=== PATIENT | female | born 1980 | race Caucasian/White ===

== ENCOUNTER 2024-08-07 07:16 | Emergency (ER) | payer SELFPAY ==
[2024-08-07 07:22] VITALS: BP 94/71; PULSE 112; TEMP 37.1; O2SAT 98; BMI 28.8
--- NOTE | 2024-08-07 07:37 | ED.GENADUL1 ---
HPI HPI - General Adult General Chief complaint: Fever Stated complaint: BLOOD IN URINE, FEVER X'S 3 DAYS Time Seen by Provider: 08/07/24 07:25 Mode of arrival: walk-in Limitations: no limitations History of Present Illness HPI narrative: The patient is a 43-year-old female to come to the ER with 2 main concern and the fact that she found some blood in her urine since yesterday, and she also started having sore throat over the last 24 hours, the patient denies any other complaints she mentioned that the sore throat is mostly to the left side, she does have some sense of chills at home as well No nausea no vomiting she also have some lower back pain on both sides No nausea no vomiting no other concerns Related Data Home Medications ?Medication ?Instructions ?Recorded ?Confirmed bupropion HCl 150 mg 24 hr tablet, 450 mg PO DAILY 08/07/24 08/07/24 extended release semaglutide (weight loss) 2.4 2.4 mg subcut Q7D 08/07/24 08/07/24 mg/0.75 mL subcutaneous pen injector (Wegovy) sertraline 50 mg tablet 50 mg PO Q24H 08/07/24 08/07/24 Previous Rx's ?Medication ?Instructions ?Recorded amoxicillin 875 mg-potassium 1 tab PO BID #28 tabs 08/07/24 clavulanate 125 mg tablet Allergies Allergy/AdvReac Type Severity Reaction Status Date / Time No Known Drug Allergies Allergy Verified 08/07/24 07:27 Review of Systems ROS Status of ROS 10 or more systems reviewed and unremarkable except as noted in history and below PFSH PFSH Social History Little interest or pleasure in doing things: not at all Feeling down, depressed, or hopeless: not at all Exam Narrative Exam Narrative: Nurses notes and vital signs reviewed and patient is not hypoxic. General: Well-appearing and in no apparent distress. Skin: Warm, dry, no pallor noted. No rash. Head: Normocephalic, atraumatic. Neck: Supple, lymphadenopathy in the left submandibular area Eye: Pupils are equal, round and EOMI. No scleral icterus. Ears, Nose, Mouth, and Throat: The patient have obvious tonsillar erythema and enlargement on the left side with white spot of exudate on the left side only and lymphadenopathy in the left side as well Cardiovascular: Regular Rate and Rhythm without murmur, gallop or rub. Respiratory: No accessory muscle use or respiratory distress. Lungs are clear to auscultation, no wheezing, rales or rhonchi Chest Wall: no tenderness Back: Bilateral lower back pain mostly at the paraspinal muscle both side of the upper lumbar level Musculoskeletal: normal ROM, no calf or popliteal tenderness, no lower extremity edema/swelling GI: Abdomen is soft, non-distended. Normal bowel sounds. No masses appreciated. No tenderness to palpation. No rebound, guarding, or rigidity noted. Neurological: A&O x4. No cranial nerve dysfunction observed. No truncal ataxia. Moves all extremities. Sensation intact. Psychiatric: Cooperative and interactive. Normal mood and affect. Constitutional Vital Signs, click to edit/add: Last Vital Signs Temp 98.8 F 08/07/24 07:22 Pulse 112 H 08/07/24 09:17 Resp 20 08/07/24 09:17 BP 103/60 08/07/24 09:17 Pulse Ox 99 08/07/24 09:17 O2 Del Method Room Air 08/07/24 09:17 Course Vital Signs Vital signs: Vital Signs Temperature 98.8 F 08/07/24 07:22 Pulse Rate 112 H 08/07/24 07:22 Respiratory Rate 20 08/07/24 07:22 Blood Pressure 94/71 08/07/24 07:22 Pulse Oximetry 98 08/07/24 07:22 Oxygen Delivery Method Room Air 08/07/24 07:22 Temperature 98.8 F 08/07/24 07:22 Pulse Rate 112 H 08/07/24 09:17 Respiratory Rate 20 08/07/24 09:17 Blood Pressure 103/60 08/07/24 09:17 Pulse Oximetry 99 08/07/24 09:17 Oxygen Delivery Method Room Air 08/07/24 09:17 Medical Decision Making [facility] Narrative Medical decision making narrative: With the patient presentation of sore throat and the fact that there is obvious strep infection the patient strep test was negative but yet to be covered with Augmentin Especially with the white blood cell being elevated and her CBC and the chemistry was within normal there was no acute kidney injury Urine shows some blood as well as ketones and proteinuria There is no sign of urine infection at the moment and the patient presentation is highly likely to be secondary glomerulonephritis streptococcal I did explain to the patient my concern and the fact that she need to follow-up with someone within few days to reevaluate her kidney she is also to come back in case of any worsening of her symptoms including any pain fever chills or any leg edema or swelling The patient is to follow up with primary care physician in next 2-3 days or to return to the emergency department should any of the signs or symptoms worsen or new symptoms develop. The patient agrees with the following Diagnosis and Treatment plan and the patient will be discharged home. Lab Data Labs: Lab Results 08/07/24 08/07/24 08/07/24 Range/Units 07:24 07:28 07:40 WBC 15.7 H (4.0-11.0) 10^3/uL RBC 4.35 (4.20-5.40) 10^6/uL Hgb 13.1 (12.0-16.0) g/dL Hct 38.8 (36.0-48.0) % MCV 89.2 (81.0-99.0) fL MCH 30.1 (26.7-34.0) pg MCHC 33.8 (29.9-35.2) g/dL RDW 12.6 (11.0-15.0) % Plt Count 251 (150-450) 10^3/uL MPV 10.4 (9.5-13.5) fL Neut % (Auto) 86.5 H (43.0-75.0) % Lymph % (Auto) 6.4 L (20.5-60.0) % [place] % (Auto) 6.3 (1.7-12.0) % Eos % (Auto) 0.1 L (0.9-7.0) % Baso % (Auto) 0.2 (0.2-2.0) % Neut # (Auto) 13.6 H (1.4-6.5) 10^3/uL Lymph # (Auto) 1.0 L (1.2-3.8) 10^3/uL [place] # (Auto) 1.0 H (0.3-0.8) 10^3/uL Eos # (Auto) 0.0 (0.0-0.7) 10^3/uL Baso # (Auto) 0.0 (0.0-0.1) 10^3/uL Abs Immat Gran (auto) 0.08 H (0.00-0.03) 10^3/uL Imm/Tot Granulo (auto) 0.5 (0.0-0.5) % Sodium 134 L (136-145) mmol/L Potassium 3.5 (3.5-5.1) mmol/L Chloride 98 (98-107) mmol/L Carbon Dioxide 26.9 (21.0-32.0) mmol/L Anion Gap 12.6 BUN 6.0 L (7.0-18.0) mg/dL Creatinine 0.74 (0.55-1.02) mg/dL Est GFR ( Amer) >60 (>=60 mL/min/1.73m^2) Est GFR (Non-Af Amer) >60 (>=60 mL/min/1.73m^2) BUN/Creatinine Ratio 8.1 Glucose 104 (74-106) mg/dL Lactate 0.8 (0.4-2.0) mmol/L Calcium 8.8 (8.5-10.1) mg/dL Total Bilirubin 0.7 (0.2-1.0) mg/dL AST 14 L (15-37) U/L ALT 17 (14-59) U/L Alkaline Phosphatase 78 (46-116) U/L Total Protein 7.3 (6.4-8.2) g/dL Albumin 3.6 (3.4-5.0) g/dL Globulin 3.7 g/dL Albumin/Globulin Ratio 1.0 Serum HCG, Qual Negative (NEGATIVE) Urine Color Dk yellow (YELLOW) Urine Clarity Clear (CLEAR) Urine pH 6.0 (5.0-9.0) Ur Specific [place] >=1.030 A (1.005-1.025) Urine Protein 100 A (NEG/TRACE) mg/dL Urine Glucose (UA) Negative (NEGATIVE) mg/dL Urine Ketones 40 A (NEGATIVE) mg/dL Urine Occult Blood Large A (NEGATIVE) Urine Nitrite Negative (NEGATIVE) Urine Bilirubin Small A (NEGATIVE) Urine Urobilinogen 4.0 A (0.2-1.0) EU/dL Ur Leukocyte Esterase Trace A (NEGATIVE) Urine RBC 10-20 A (0-2) #/HPF Urine WBC 5-10 A (NONE SEEN) #/HPF Ur Squamous Epith Cells Many A (NONE/RARE) #/LPF Urine Crystals None seen (None Seen) #/HPF Urine Bacteria Small A (NONE SEEN) #/HPF Urine Casts None seen (NONE SEEN) #/LPF Urine Mucus Small A (NONE SEEN) Ur Culture Indicated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
[2024-08-07 07:43] LABS: Bilirubin Urine SMALL (NEGATIVE); Blood Urine LARGE (NEGATIVE); Clarity Urine CLEAR (CLEAR); Glucose Urine UA NEGATIVE (NEGATIVE); Ketones Urine 40 mg/dL (NEGATIVE); Leukocyte Esterase Urine TRACE (NEGATIVE); Nitrite Urine NEGATIVE (NEGATIVE); Protein Urine 100 mg/dL (NEG/TRACE); Specific Gravity Urine >=1.030 (1.005-1.025)
[2024-08-07 07:45] LABS: Color Urine DK YELLOW (YELLOW); Urine Microscopic Indicated YES
[2024-08-07 07:50] LABS: Internal Control Within Normal Limits; Strep A Antigen Screen Negative
[2024-08-07 07:52] LABS: Basophils Percent Auto 0.2 % (0.2-2.0); Eosinophils Percent Auto 0.1 % (0.9-7.0); Hematocrit 38.8 % (36.0-48.0); Hemoglobin 13.1 g/dL (12.0-16.0); Immature Granulocytes Abs Auto 0.08 10^3/uL (0.00-0.03); Immature Granulocytes Pct Auto 0.5 % (0.0-0.5); Lymphocytes Percent Auto 6.4 % (20.5-60.0); Mean Corpuscular HGB Conc 33.8 g/dL (29.9-35.2); Mean Corpuscular Hemoglobin 30.1 pg (26.7-34.0); Mean Corpuscular Volume 89.2 fL (81.0-99.0); Mean Platelet Volume 10.4 fL (9.5-13.5); Monocytes Percent Auto 6.3 % (1.7-12.0); Neutrophils Absolute Auto 13.6 10^3/uL (1.4-6.5); Neutrophils Percent Auto 86.5 % (43.0-75.0); Platelet Count 251 10^3/uL (150-450); Red Blood Count 4.35 10^6/uL (4.20-5.40); Red Cell Distribution Width 12.6 % (11.0-15.0); White Blood Count 15.7 10^3/uL (4.0-11.0)
[2024-08-07 08:00] LABS: Bacteria Urine SMALL #/HPF (NONE SEEN); Cast Seen? NONE SEEN #/LPF (NONE SEEN); Crystals Seen? None Seen #/HPF (None Seen); Mucus Urine SMALL (NONE SEEN); Squamous Epithelial Cell Urine MANY #/LPF (NONE/RARE); Urine Culture Indicated YES-FRMC
[2024-08-07 08:02] LABS: HCG Qualitative NEGATIVE (NEGATIVE); Internal Control Within Normal Limits
[2024-08-07 08:04] LABS: Alanine Aminotransferase 17 U/L (14-59); Albumin Level 3.6 g/dL (3.4-5.0); Alkaline Phosphatase 78 U/L (46-116); Anion Gap 12.6; Aspartate Amino Transferase 14 U/L (15-37); BUN Creatinine Ratio 8.1; Bilirubin Total 0.7 mg/dL (0.2-1.0); Calcium 8.8 mg/dL (8.5-10.1); Carbon Dioxide 26.9 mmol/L (21.0-32.0); Chloride 98 mmol/L (98-107); Estimated GFR (African America >60 (>=60 mL/min/1.73m^2); Estimated GFR (Non-African Ame >60 (>=60 mL/min/1.73m^2); Globulin 3.7 g/dL; Glucose 104 mg/dL (74-106); Potassium 3.5 mmol/L (3.5-5.1); Sodium 134 mmol/L (136-145); Total Protein 7.3 g/dL (6.4-8.2)
[2024-08-07] MEDS: 0.9 % SODIUM CHLORIDE 1,000 ML 1000 ML IV (08:09)
[2024-08-07 08:28] LABS: Lactate/Lactic Acid 0.8 mmol/L (0.4-2.0)
[2024-08-07 09:17] VITALS: BP 103/60; PULSE 112; O2SAT 99
[2024-08-07] MEDS: AMOXICILLIN/POT CLAV 875-125 MG TABLET 1 TAB PO (09:34)
== END 2024-08-07 09:46 | disposition home or self-care (01) ==
PROVIDERS: Emergency Provider Emergency Medicine; PCP Nurse Practitioner
DX: N00.9 Acute nephritic syndrome with unspecified morphologic changes (principal)
CPT/HCPCS: 36415; 74176; 80053; 81001; 83605; 84703; 85025; 87070; 87077; 87086; 87880; 99284